=== PATIENT | male | born 1985 | race Caucasian/White ===

== ENCOUNTER 2017-02-08 15:28 | Emergency (ER) | payer MEDICARE | END 2017-02-08 18:19 | disposition home or self-care (01) | LOC: ER1 15:28 | DX: S06.0X0A Concussion without loss of consciousness, initial encounter (principal); W22.01XA Walked into wall, initial encounter; Y92.009 Unspecified place in unspecified non-institutional (private) residence as the place of occurrence of the external cause; Z88.2 Allergy status to sulfonamides; Z88.8 Allergy status to other drugs, medicaments and biological substances | CPT/HCPCS: 70450; 80307; 81001; 87086; 99284 ==

== ENCOUNTER 2021-03-22 20:10 | Emergency (ER) | payer OTHER ==
[~2021-03-22 20:10] MED LIST: BACTROBAN OINT22 GM EXT; CLEOCIN HCL300 MG PO; IBUPROFEN600 MG PO; VIBRAMYCIN100 MG PO; ZITHROMAX250 MG PO
[2021-03-25 20:08] LABS: CHLAMYDIA TRACHOMATIS, NAA Negative (Negative); NEISSERIA GONORRHOEAE, NAA Positive (Negative)
== END 2021-03-22 22:11 | disposition home or self-care (01) ==
LOC: ER1 20:10
DX: N34.2 Other urethritis (principal); Z20.2 Contact with and (suspected) exposure to infections with a predominantly sexual mode of transmission
CPT/HCPCS: 81001; 96372; 99284; J0696

== ENCOUNTER 2021-04-28 08:21 | Emergency (ER) | payer OTHER | END 2021-04-28 09:00 | disposition left against medical advice (07) | LOC: ER1 08:21 | DX: Z53.21 Procedure and treatment not carried out due to patient leaving prior to being seen by health care provider (principal) ==

== ENCOUNTER 2021-05-29 12:13 | Emergency (ER) | payer OTHER ==
[2021-05-29] MEDS ORDERED: CEPHALEXIN500 MG PO (13:09)
[2021-05-29] MEDS ORDERED: BACTRIM DS TAB1 EACH PO (13:09)
== END 2021-05-29 13:31 | disposition home or self-care (01) ==
LOC: ER1 12:13
DX: T63.301A Toxic effect of unspecified spider venom, accidental (unintentional), initial encounter (principal); L02.416 Cutaneous abscess of left lower limb
CPT/HCPCS: 10060; 99281

== ENCOUNTER 2021-06-17 10:57 | Emergency (ER) | payer OTHER ==
[~2021-06-17 10:57] MED LIST changes: +BACTRIM DS TAB1 EACH PO; +CEPHALEXIN500 MG PO
== END 2021-06-17 11:49 | disposition left against medical advice (07) ==
LOC: ER1 10:57
DX: Z53.21 Procedure and treatment not carried out due to patient leaving prior to being seen by health care provider (principal)

== ENCOUNTER 2021-06-20 10:38 | Emergency (ER) | payer OTHER ==
[2021-06-20] MEDS ORDERED: VIBRAMYCIN100 MG PO (12:14)
[2021-06-20] MEDS ORDERED: CEPHALEXIN500 MG PO (12:14)
== END 2021-06-20 12:43 | disposition home or self-care (01) ==
LOC: ER1 10:38
DX: L02.415 Cutaneous abscess of right lower limb (principal); Z23 Encounter for immunization
CPT/HCPCS: 10060; 73562; 87070; 87077; 87186; 87205; 90471; 90715; 96372; 99283; J0696

== ENCOUNTER 2022-01-26 22:33 | Emergency (ER) | payer OTHER ==
[2022-01-26] MEDS ORDERED: IBUPROFEN600 MG PO (23:37)
== END 2022-01-27 00:04 | disposition left against medical advice (07) ==
LOC: ER1 22:33
DX: S61.512A Laceration without foreign body of left wrist, initial encounter (principal); Z88.8 Allergy status to other drugs, medicaments and biological substances; W26.8XXA Contact with other sharp object(s), not elsewhere classified, initial encounter
CPT/HCPCS: 99282

== ENCOUNTER 2022-03-09 17:25 | Emergency (ER) | payer OTHER | END 2022-03-09 17:42 | disposition left against medical advice (07) | LOC: ER1 17:25 | DX: Z53.21 Procedure and treatment not carried out due to patient leaving prior to being seen by health care provider (principal) ==